=== PATIENT | female | born 1950 | race Caucasian/White ===

== ENCOUNTER 2017-12-26 09:04 | Emergency (ER) | payer OTHER ==
[2017-12-26] MEDS ORDERED: HYDROCODONE/APAP 5/325 MG TAB ONE (10:21)
[2017-12-26] MEDS ORDERED: TETANUS & DIPHTHERIA TOX,ADULT 0.5 ML VIAL ONE (10:21)
[2017-12-26] MEDS ORDERED: BUPIVACAINE 0.5% PF 10 ML VIAL ONE (11:28)
[2017-12-26] MEDS ORDERED: LIDOCAINE 1% MPF 5 ML VIAL ONE (11:28)
--- NOTE | 2017-12-26 11:42 | ER ---
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 No bleeding noted. Bruising and swelling noted to affected digit. Transition of care: patient was not received from another setting of care. Onset of symptoms was December 26, 2017. Risk Assessment: Do you want to hurt yourself or someone else? Patient reports no desire to harm self or others. Initial Sepsis Screen: Does the patient meet any 2 criteria? No. Patient's initial sepsis screen is negative. Does the patient have a suspected source of infection? No. Patient's initial sepsis screen is negative. Care prior to arrival: None. 09:35 Method Of Arrival: Ambulatory ss 09:35 Acuity: FARHAT 4 ss Historical: - Allergies: 09:37 Iodine; ss 09:37 Aspirin; ss 09:37 iron; ss 09:37 Adhesives; ss - Immunization history:: Adult Immunizations up to date. - Social history:: Smoking status: Patient/guardian denies using tobacco. - Ebola Screening: : Patient denies exposure to infectious person Patient denies travel to an Ebola-affected area in the 21 days before illness onset. Screenin:58 Abuse screen: Denies threats or abuse. Denies injuries from another. Nutritional ph screening: No deficits noted. Tuberculosis screening: No symptoms or risk factors identified. Fall Risk None identified. Assessment: 10:15 General: Appears in no apparent distress. comfortable, Behavior is calm, cooperative, ph appropriate for age. Pain: Complains of pain in palmar aspect of distal phalanx of left middle finger. Neuro: Level of Consciousness is awake, alert, obeys commands, Oriented to person, place, time, situation. Cardiovascular: Capillary refill < 3 seconds Patient's skin is warm and dry. Respiratory: Airway is patent Respiratory effort is even, unlabored, Respiratory pattern is regular, symmetrical. GI: No signs and/or symptoms were reported involving the gastrointestinal system. Derm: Skin is intact, is healthy with good turgor, Skin is pink, warm \T\ dry. Bruising that is dark purple, on palmar aspect of distal phalanx of left middle finger. Musculoskeletal: Circulation, motion, and sensation intact. Range of motion: intact in all extremities, Swelling present in palmar aspect of distal phalanx of left middle finger. Vital Signs: 09:37 BP 131 / 80; Pulse 69; Resp 15; Temp 98.0(O); Pulse Ox 100% on R/A; Weight 71.67 kg; ss Height 5 ft. 1 in. (154.94 cm); Pain 8/10; 09:37 Body Mass Index 29.85 (71.67 kg, 154.94 cm) ss ED Course: 09:07 Patient arrived in ED. sb2 09:07 Out, [facility] is Private Physician. sb2 09:36 Triage completed. ss 09:37 Arm band placed on right wrist. ss 09:58 Dereje Das PA is PHCP. cp 09:58 Dereje Hayes MD is Attending Physician. cp 10:04 Shahnaz Nevarez, JORGE is Primary Nurse. ph 10:30 X-ray completed. Portable x-ray completed in exam room. Patient tolerated procedure jb2 well. 10:31 XRAY Hand LEFT 3 View In Process Unspecified. EDMS 10:58 Patient has correct armband on for positive identification. Bed in low position. Call ph light in reach. Side rails up X 1. 11:39 Martell Day MD is Referral Physician. cp 12:10 Orthoglass splint: finger protector splint applied to pt left first two fingers and dh3 louise taped with Coban. 12:39 No provider procedures requiring assistance completed. Patient did not have IV access ss during this emergency room visit. 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 Exp: ph 02/14/2020. Lot #: [id number]. } Route: IM; Site: right deltoid; 11:28 Drug: Lidocaine (1 %) 5 mg Route: Infiltration; ph 11:28 Drug: Marcaine (0.5 %) 5 ml Volume: 10 ml; Route: Infiltration; ph Outcome: 11:41 Discharge ordered by . cp 12:39 Discharged to home ambulatory, with family. ss 12:39 Condition: good 12:39 Discharge instructions given to patient, family, Instructed on discharge instructions, follow up and referral plans. medication usage, Demonstrated understanding of instructions, follow-up care, medications, Prescriptions given X 2. 12:39 Patient left the ED. Signatures: Dispatcher [employer] Roby Laboy2 Samantha Adhikari, JORGE RN Shahnaz Nevarez RN RN ph Dereje Das, HENRY PA Elisa Rogers 3 Aminata Sun sb2
--- NOTE | 2017-12-26 11:42 | EDPHYS ---
Physician Documentation [facility] Name: Rissa Nolen Age: 67 yrs Sex: Female : 1950 Arrival Date: 12/26/2017 Time: 09:07 Bed 15 Private MD: Out, [facility] ED Physician Dereje Hayes HPI: 12/26 10:15 This 67 yrs old Female presents to ER via Ambulatory with complaints of cp Finger Injury. 10:15 The patient or guardian reports a contusion, decreased range of motion, injury, pain, cp swelling, tenderness. 10:15 The complaints affect the palmar aspect of distal phalanx of left middle finger. 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 Onset: The symptoms/episode began/occurred this morning. Associated signs and symptoms: Pertinent positives: cyanosis distally, Pertinent negatives: cyanosis distally. Historical: - Allergies: 09:37 Iodine; ss 09:37 Aspirin; ss 09:37 iron; ss 09:37 Adhesives; ss - Immunization history:: Adult Immunizations up to date. - Social history:: Smoking status: Patient/guardian denies using tobacco. - Ebola Screening: : Patient denies exposure to infectious person Patient denies travel to an Ebola-affected area in the 21 days before illness onset. ROS: 10:20 Constitutional: Negative for body aches, chills, fever, poor PO intake. cp 10:20 Eyes: Negative for injury, pain, redness, and discharge. cp 10:20 ENT: Negative for drainage from ear(s), ear pain, sore throat, difficulty swallowing, difficulty handling secretions. 10:20 Respiratory: Negative for cough, shortness of breath, wheezing. 10:20 Abdomen/GI: Negative for abdominal pain, nausea, vomiting, and diarrhea. 10:20 MS/extremity: Positive for contusion, decreased range of motion, ecchymosis, pain, paresthesias, swelling, tenderness, of the palmar aspect of distal phalanx of left middle finger. 10:20 All other systems are negative. Exam: 10:28 Constitutional: The patient appears in no acute distress, alert, awake, non-toxic, well cp developed, well nourished. 10:28 Head/Face: Normocephalic, atraumatic. cp 10:28 Eyes: Periorbital structures: appear normal, Conjunctiva: normal, no exudate, no injection, Sclera: no appreciated abnormality, Lids and lashes: appear normal, bilaterally. 10:28 ENT: External ear(s): are unremarkable, Nose: is normal, Mouth: is normal, Posterior pharynx: is normal, airway is patent, no erythema, no exudate. 10:28 Neck: ROM/movement: is normal, is supple, without pain, no range of motions limitations, no nuchal rigidity. 10:28 Chest/axilla: Inspection: normal. 10:28 Cardiovascular: Rate: normal, Pulses: Pulses are 2+ in right radial artery and left radial artery. Edema: is not appreciated. 10:28 Respiratory: the patient does not display signs of respiratory distress, Respirations: normal. 10:28 Abdomen/GI: Exam negative for acute changes, Inspection: 10:28 Musculoskeletal/extremity: Extremities: grossly normal except: noted in the palmar aspect of distal phalanx of left middle finger: contusion, decreased ROM, ecchymosis, pain, swelling, tenderness, ROM: limited active range of motion, in the left middle finger, patient unable to flex finger, decreased sensation. 10:28 Skin: cellulitis, is not appreciated, no rash present. Vital Signs: 09:37 BP 131 / 80; Pulse 69; Resp 15; Temp 98.0(O); Pulse Ox 100% on R/A; Weight 71.67 kg; ss Height 5 ft. 1 in. (154.94 cm); Pain 8/10; 09:37 Body Mass Index 29.85 (71.67 kg, 154.94 cm) Procedures: 12:30 Splinting: Splint applied to left middle finger using Orthoglass splint, sugar tong cp type. applied by tech. Examined by me, post splint application: neurovascular intact, Patient tolerated well. MDM: 10:00 Patient medically screened. cp 11:00 Differential diagnosis: dislocation, open fracture, closed fracture, contusion. cp 11:40 Data reviewed: vital signs, nurses notes, radiologic studies, plain films, and as a cp result, I will discharge patient. 11:40 Test interpretation: by ED physician or midlevel provider: plain radiologic studies. cp Counseling: I had a detailed discussion with the patient and/or guardian regarding: the historical points, exam findings, and any diagnostic results supporting the discharge/admit diagnosis, radiology results, the need for outpatient follow up, a hand specialist, to return to the emergency department if symptoms worsen or persist or if there are any questions or concerns that arise at home. Response to treatment: the patient's symptoms have markedly improved after treatment. 12/26 10:08 Order name: XRAY Hand LEFT 3 View; Complete Time: 11:45 cp 12/26 11:45 Interpretation: Report reviewed. 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 Exp: ph 02/14/2020. Lot #: [id number]. } Route: IM; Site: right deltoid; 11:28 Drug: Lidocaine (1 %) 5 mg Route: Infiltration; ph 11:28 Drug: Marcaine (0.5 %) 5 ml Volume: 10 ml; Route: Infiltration; ph Disposition: 12/27 06:45 Co-signature as Attending Physician, Dereje Hayes MD I agree with the assessment and marya plan of care. Disposition: 12/26/17 11:41 Discharged to Home. Impression: Contusion of left middle finger without damage to nail, Rupture Left Middle Finger Flexor Tendon. - Condition is Stable. - Discharge Instructions: Contusion. - Prescriptions for Keflex 500 mg Oral Capsule - take 1 capsule by ORAL route every 8 hours for 7 days; 21 capsule. Tylenol- Codeine #3 300-30 mg Oral Tablet - take 2 tablets by ORAL route every 6 hours As needed; 15 tablet. - Medication Reconciliation Form, Thank You Letter, Antibiotic Education, Prescription Opioid Use form. - Follow up: Martell Day MD; When: 2 - 3 days; Reason: Recheck today's complaints. - Problem is new. - Symptoms have improved. Signatures: Dispatcher [employer] Dereje Barboza MD MD cha Smirch, Shelby, RN RN ss Shahnaz Nevarez RN RN ph Dereje Das PA PA cp Corrections: (The following items were deleted from the chart) 12/26 12:39 11:41 12/26/2017 11:41 Discharged to Home. Impression: Contusion of left middle finger ss without damage to nail; Rupture Left Middle Finger Flexor Tendon. Condition is Stable. Forms are Medication Reconciliation Form, Thank You Letter, Antibiotic Education, Prescription Opioid Use. Follow up: Martell Day; When: 2 - 3 days; Reason: Recheck today's complaints. Problem is new. Symptoms have improved. cp 12/27 08:12/25 10:20 Constitutional: Negative for body aches, chills, fever, poor PO intake, cp cp 12/27 08:12/25 10:20 Eyes: Negative for injury, pain, redness, and discharge, cp cp
--- NOTE | 2017-12-26 11:42 | RAD REPORT ---
EXAM DESCRIPTION: RAD - Hand Left 3 View - 12/26/2017 10:31 am CLINICAL HISTORY: PAIN Trauma to third digit COMPARISON: No comparisons FINDINGS: Soft tissue swelling is present involving the third digit. No fracture or dislocation is e vident.
[2017-12-26 12:43] VITALS: BP 131/80; TEMP 98; O2SAT 100
== END 2017-12-26 12:39 | disposition home or self-care (01) ==
LOC: ER 09:04
PROC: 2W3KX1Z Immobilization of Left Finger using Splint (ICD-10-PCS; principal; 2017-12-26)
DX: S56.114A Strain of flexor muscle, fascia and tendon of left middle finger at forearm level, initial encounter (principal); W22.8XXA Striking against or struck by other objects, initial encounter; Y93.9 Activity, unspecified; Y92.009 Unspecified place in unspecified non-institutional (private) residence as the place of occurrence of the external cause; Z88.6 Allergy status to analgesic agent; Z91.048 Other nonmedicinal substance allergy status; Z23 Encounter for immunization
CPT/HCPCS: 90714; 99284

== ENCOUNTER 2018-05-28 14:46 | Emergency (ER) | payer OTHER ==
--- OUTSIDE RECORDS SUMMARY | 2018-05-28 14:49 | XMS REPORT ---
:1950 [facility] [address] [place] [id number] Care Team Providers Name Role Phone Unavailable Unavailable Unavailable Payers Payer Name Policy Type Policy Number Effective Date Expiration Date Problems This patient has no known problems. Allergies, Adverse Reactions, Alerts Allergy Name Allergy Status Severity Reaction(s) Onset Inactive Treating Comments Type Date Date Clinician Iodine and DA Active [place] 2018-04 Iodide -14 Containing 00:00:0 Produc 0 adhesive DA Active [place] 2018-04 tape 00:00:0 0 iron DA Active SV 2015-11 00:00:0 0 iodine DA Active SV 2015-11 00:00:0 0 aspirin DA Active SV 2015-11 00:00:0 0 BLOOD DA Active SV 2015-11 00:00:0 0 TAPE DA Active U 2008-05 00:00:0 0 Medications This patient has no known medications.
--- NOTE | 2018-05-28 16:29 | RAD REPORT ---
EXAM DESCRIPTION: CT - Abdomen Pelvis Wo Contrast - 05/28/2018 4:06 pm CLINICAL HISTORY: Abdominal pain, drainage from surgical site, surgery May 13 for rectal prolap se COMPARISON: None. TECHNIQUE: Axial [address] imaging of the abdomen and pelvis was performed without IV contrast. No IV contrast was given because of allergy, abnormal renal function, patient refusal or physician re quest. No oral contrast given. All CT scans are performed using dose optimization technique as appropriate and may include automated exposure control or mA/KV adjustment according to patient size. FINDINGS: Minimal patchy opacification in the left lung base could be atelectasis or minimal infiltr ate. Lung powers are not adequately visualized for full assessment. No pneumothorax or pleural effusi on. No pericardial thickening or effusion. The liver, spleen and pancreas show no suspicious findings on non-contrast imaging. Cholecystectomy c lips are present. No biliary tree dilatation. No hydronephrosis or suspicious renal mass. A 3 cm cyst present upper pole left kidney. Partially guillermo led urinary bladder shows no suspicious finding. No significant adrenal finding. Isodense renal yony s and pyelonephritis cannot be excluded in the absence of IV contrast. Fluid distends the stomach. Gastric surgical changes are noted. Large and small bowel are not dilated . Postsurgical changes are noted to the anterior abdominal wall. Skin ze are still in place. Str anding is present in the subcutaneous fatty tissues. At the umbilical level there is a small amount o f air present in the deep subcutaneous fatty tissues. Small bowel just deep to the anterior abdominal wall at the umbilicus shows wall thickening and edema. Anastomotic ze are seen at the distal re ctum and the rectosigmoid junction. In the presacral soft tissues there is a 6 x 6 x 5 centimeter low -density collection. Air is seen in the superior margin. This most likely is an abscess and likely ar ises from the leak along the posterior margin of the distal rectum anastomosis. No free air or pneumatosis. No hernia, mass or bulky lymphadenopathy. No suspicious bony findings. IMPRESSION: Approximately 6 centimeter diameter abscess in the presacral soft tissues. This may be f rom the distal rectum anastomotic leak. Air, fluid and stranding are present without a defined collection in the deep subcutaneous fatty tiss ues at the umbilical level. There is secondary involvement of small bowel deep to the anterior abdomi nal wall at the umbilical level. No free air. Full assessment is limited is the absence of IV contrast.
--- NOTE | 2018-05-28 17:13 | EDPHYS ---
Physician Documentation [facility] Name: Rissa Nolen Age: 67 yrs Sex: Female : 1950 Arrival Date: 05/28/2018 Time: 14:48 Bed 23 Private MD: Out, [facility] ED Physician Alexx Ramsay HPI: 05/28 15:53 This 67 yrs old Female presents to ER via Wheelchair with complaints of Post jmm Surgical Pain. 15:53 The patient presents with abdominal pain in the lower abdomen. Onset: The jmm symptoms/episode began/occurred gradually. The symptoms radiate to. Associated signs and symptoms: Pertinent negatives: fever. This is a 67 year old female that presents to the ED with lower abdominal pain at her incision site. Patient states having a surgival procedure performed by Dr. Healy at [facility] in mid April to prepare a rectal prolapse. Patient had multiple falls and was readmitted and discharged on . Patient is concerned about wound care and drainage from the wound site. Patient has not taken prescribed antibiotics. . Historical: - Allergies: 15:36 Adhesives; ph 15:36 Aspirin; ph 15:36 Iodine; ph 15:36 iron; ph - PSHx: 15:36 Mastectomy, Left; Mastectomy, Right; colon resection; ph - Immunization history:: Adult Immunizations up to date. - Ebola Screening: : No symptoms or risks identified at this time. - Social history:: Smoking status: Patient/guardian denies using tobacco. ROS: 15:53 Constitutional: Negative for fever, chills, and weight loss, Cardiovascular: Negative jmm for chest pain, palpitations, and edema, Respiratory: Negative for shortness of breath, cough, wheezing, and pleuritic chest pain. 15:53 Abdomen/GI: Positive for abdominal pain. 15:53 Skin: Positive for erythema, drainage. 15:53 All other systems are negative. Exam: 15:53 Constitutional: This is a well developed, well nourished patient who is awake, alert, jmm and in no acute distress. Head/Face: atraumatic. Eyes: EOMI, no conjunctival erythema appreciated ENT: Moist Mucus Membranes Neck: Trachea midline, Supple Chest/axilla: Normal chest wall appearance and motion. Cardiovascular: Regular rate and rhythm. No edema appreciated Respiratory: Normal respirations, no respiratory distress appreciated 15:53 Abdomen/GI: vertical incision noted to the lower abdomen with mild surrounding erythema, purulent drainage is noted. Lower abdomen is TTP at the right and left lower quadrant. . 15:53 Skin: erythema with purulent drainage noted to the incision site on the abdomen. 15:53 Neuro: Orientation: is normal, Mentation: is normal, Memory: is normal. 15:53 Psych: Behavior/mood is pleasant, cooperative. Vital Signs: 15:34 BP 155 / 78; Pulse 72; Resp 18; Temp 97.6; Pulse Ox 97% on R/A; ph 16:55 BP 160 / 94; Pulse 68; Resp 18; Pulse Ox 97% on R/A; aj1 18:59 BP 151 / 84; Pulse 77; Resp 18; Pulse Ox 100% on R/A; aj1 MDM: 15:23 Patient medically screened. [facility] 17:09 Data reviewed: vital signs, nurses notes. Counseling: I had a detailed discussion with robby the patient and/or guardian regarding: the historical points, exam findings, and any diagnostic results supporting the discharge/admit diagnosis, radiology results, the need to transfer to another facility. ED course: i discussed the patient with [facility] physician whom accepted transfer. . 05/28 15:48 Order name: Basic Metabolic Panel; Complete Time: 17:23 [facility] 05/28 15:48 Order name: CBC with Diff; Complete Time: 18:19 [facility] 05/28 15:48 Order name: Creatinine for Radiology; Complete Time: 17:23 [facility] 05/28 15:48 Order name: Hepatic Function; Complete Time: 17:23 [facility] 05/28 15:48 Order name: Lipase; Complete Time: 17:23 [facility] 05/28 15:48 Order name: Procalcitonin; Complete Time: 17:53 [facility] 05/28 15:48 Order name: IV Saline Lock; Complete Time: 16:53 [facility] 05/28 15:48 Order name: Labs collected and sent; Complete Time: 16:53 [facility] 05/28 15:48 Order name: Lactate; Complete Time: 17:23 [facility] 05/28 15:48 Order name: Wound Culture [facility] 05/28 15:48 Order name: Blood Culture Adult (2) [facility] 05/28 15:48 Order name: CT Abd/Pelvis - Without Cont; Complete Time: 16:31 [facility] 05/28 17:05 Order name: Labs - recollect needed; Complete Time: 18:13 eb Administered Medications: 18:36 Drug: Zosyn 3.375 grams Route: IVPB; Infused Over: 60 mins; Site: right antecubital; aj1 Disposition: 05/29 08:05 Co-signature as Attending Physician, Alexx Ramsay MD I agree with the assessment and kdr plan of care. Disposition: 05/28/18 17:10 Transfer ordered to Other Acute Care Facility. Diagnosis is Intrabdominal Abscess. - Reason for transfer: Higher level of care. - Accepting physician is Abdifatah Brock. - Condition is Stable. - Problem is new. - Symptoms are unchanged. Signatures: Dispatcher [employer] EDGreta Nayak, RN RN aj1 Dereje Hayes MD MD cha Rittger, Kevin, MD MD kdr Mickail, Joel, PA PA Shahnaz Arboleda RN RN Pilar Mcdonald Corrections: (The following items were deleted from the chart) 05/28 19:38 17:10 05/28/2018 17:10 Transfer ordered to Other Acute Care Facility. Diagnosis is aj1 Intrabdominal Abscess. Reason for transfer: Higher level of care. Accepting physician is Abdifatah Brock. Condition is Stable. Problem is new. Symptoms are unchanged. [facility]
--- NOTE | 2018-05-28 17:13 | ER ---
Nurse's Notes [facility] Name: Rissa Nolen Age: 67 yrs Sex: Female : 1950 Arrival Date: 05/28/2018 Time: 14:48 Bed 23 Private MD: Out, [facility] Diagnosis: Intrabdominal Abscess Presentation: 05/28 15:30 Presenting complaint: states: Colon sx on May 13 for rectal prolapse, ph preformed in [place], d/c home last Sat, c/o pain and purulent drainage after returning home Fell last week and returned to [place] for tx, CT negative for injury r/t fall but showed a fluid pocket in abdomen near surgical area. Transition of care: patient was not received from another setting of care. Onset of symptoms was May 28, 2018. Risk Assessment: Do you want to hurt yourself or someone else? Patient reports no desire to harm self or others. Initial Sepsis Screen: Does the patient meet any 2 criteria? No. Patient's initial sepsis screen is negative. Care prior to arrival: None. 15:30 Method Of Arrival: Wheelchair ph 15:30 Acuity: FARHAT 3 ph 19:00 Initial Sepsis Screen: Does the patient have a suspected source of infection? Yes: Skin aj1 breakdown/wound. Historical: - Allergies: 15:36 Adhesives; ph 15:36 Aspirin; ph 15:36 Iodine; ph 15:36 iron; ph - PSHx: 15:36 Mastectomy, Left; Mastectomy, Right; colon resection; ph - Immunization history:: Adult Immunizations up to date. - Ebola Screening: : No symptoms or risks identified at this time. - Social history:: Smoking status: Patient/guardian denies using tobacco. Screenin:00 Abuse screen: Denies threats or abuse. Denies injuries from another. Nutritional aj1 screening: No deficits noted. Tuberculosis screening: No symptoms or risk factors identified. 19:00 Fall Risk Fall in past 12 months (25 points). No secondary diagnosis (0 pts). IV access aj1 (20 points). Ambulatory Aid- None/Bed Rest/Nurse Assist (0 pts). Gait- Normal/Bed Rest/Wheelchair (0 pts) Mental Status- Oriented to own ability (0 pts). Total Hawkins Fall Scale indicates High Risk Score (45 or more points). As available patient and family educated on Fall Prevention Program and Strategies. Assessment: 16:00 General: Appears in no apparent distress. uncomfortable, Behavior is calm, cooperative, aj1 appropriate for age. Pain: Complains of pain in abdomen. Neuro: Level of Consciousness is awake, alert, obeys commands. Cardiovascular: Patient's skin is warm and dry. Respiratory: Airway is patent Respiratory effort is even, unlabored, Respiratory pattern is regular, symmetrical. GI: Abdomen is non-distended, incision noted to lower abdomen, with purulent drainage. Redness noted around incision site Abd is soft X 4 quads Abdomen is tender to palpation in right lower quadrant and left lower quadrant. : No signs and/or symptoms were reported regarding the genitourinary system. EENT: No signs and/or symptoms were reported regarding the EENT system. Derm: No signs and/or symptoms reported regarding the dermatologic system. Skin is pink, warm \T\ dry. normal. Musculoskeletal: No signs and/or symptoms reported regarding the musculoskeletal system. Circulation, motion, and sensation intact. 16:55 Reassessment: Patient appears in no apparent distress at this time. No changes from aj1 previously documented assessment. Patient and/or family updated on plan of care and expected duration. Pain level reassessed. Patient is alert, oriented x 3, equal unlabored respirations, skin warm/dry/pink. 17:55 Reassessment: No changes from previously documented assessment. General: Appears in no aj1 apparent distress. comfortable, Behavior is calm, cooperative, appropriate for age. Neuro: Level of Consciousness is awake, alert, obeys commands. Cardiovascular: Patient's skin is warm and dry. Respiratory: Airway is patent Respiratory effort is even, unlabored, Respiratory pattern is regular, symmetrical. GI: Abdomen is non-distended. Derm: Skin is pink, warm \T\ dry. normal. Musculoskeletal: Circulation, motion, and sensation intact. 18:55 Reassessment: Reports given to JORGE Mcclain on [facility]. aj1 18:57 Reassessment: Patient's was notified that report was given and EMS was on the aj1 way to transfer patient, per patient's request. 18:59 Reassessment: Patient appears in no apparent distress at this time. No changes from aj1 previously documented assessment. Patient and/or family updated on plan of care and expected duration. Pain level reassessed. Patient is alert, oriented x 3, equal unlabored respirations, skin warm/dry/pink. Vital Signs: 15:34 BP 155 / 78; Pulse 72; Resp 18; Temp 97.6; Pulse Ox 97% on R/A; ph 16:55 BP 160 / 94; Pulse 68; Resp 18; Pulse Ox 97% on R/A; aj1 18:59 BP 151 / 84; Pulse 77; Resp 18; Pulse Ox 100% on R/A; aj1 ED Course: 14:48 Patient arrived in ED. sb2 14:48 Out, of Town is Private Physician. sb2 15:23 Van Mcfarland PA is PHCP. [facility] 15:23 Alexx Ramsay MD is Attending Physician. shawna 15:33 Greta Griffin RN is Primary Nurse. aj1 15:34 Triage completed. ph 15:36 Arm band placed on Patient placed in an exam room, on a stretcher. ph 15:[address] vr 16:00 Patient has correct armband on for positive identification. aj1 16:00 No provider procedures requiring assistance completed. aj1 16:04 CT completed. Patient tolerated procedure well. Patient moved back from CT. 2 16:06 CT Abd/Pelvis - Without Cont In Process Unspecified. EDMS 16:53 Initial lab(s) drawn, by me, sent to lab. Inserted saline lock: 22 gauge in right aj1 antecubital area, using aseptic technique. Blood collected. 18:24 Inserted saline lock: 18 gauge in right upper arm, using aseptic technique. bp 19:00 Patient transferred, IV remains in place. aj1 Administered Medications: 18:36 Drug: Zosyn 3.375 grams Route: IVPB; Infused Over: 60 mins; Site: right antecubital; aj1 Outcome: 17:10 ER care complete, transfer ordered by . [facility] 19:38 Transferred by ground EMS Note: To [facility] aj1 19:38 Condition: stable aj1 19:38 Discharge instructions given to patient, Instructed on the need for transfer, Demonstrated understanding of instructions. 19:38 Patient left the ED. aj1 Signatures: Dispatcher [employer] EDGreta Nayak, RN RN aj Van Mcfarland PA PA jmm Davis, Victoria vr Hall, Patricia, RN RN ph Reina Bravo 2 Vega Genao RN RN Dino, Aminata 2
[2018-05-28 17:16] LABS: Albumin 2.2 g/dL (3.4-5.0); Bilirubin Direct 0.2 mg/dL (0-0.2); Bilirubin Total 0.4 mg/dL (0.2-1.0); Protein, Total 6.4 g/dL (6.4-8.2)
[2018-05-28] MEDS ORDERED: PIPER/TAZO/NS 3.375gm 3.375 GM/100 ML BAG ONE (17:42)
[2018-05-28 18:10] LABS: Absolute Lymphocytes (CBC) 1.6 K/uL (0.7-4.9); Absolute Monocytes 0.6 K/uL (0.1-1.3); Absolute Neutrophil 6.1 K/uL (1.8-8.0); Basophils % 0.7 % (0-1.3); Eosinophils % 3.8 % (0-4.4); Lymphocytes % 18.8 % (15.3-44.8); MPV 8.5 fL (7.6-11.3); Monocytes % 6.5 % (3.3-12.3); RBC Red Blood Cell Count 3.66 M/uL (3.86-4.86)
[2018-05-28 19:45] VITALS: TEMP 97.6
[2018-05-28 19:47] VITALS: BP 151/84; O2SAT 100
== END 2018-05-28 19:38 ==
LOC: ER 14:46
DX: K65.1 Peritoneal abscess (principal); T81.43XA Infection following a procedure, organ and space surgical site, initial encounter; Z88.6 Allergy status to analgesic agent; Z88.8 Allergy status to other drugs, medicaments and biological substances; Z90.12 Acquired absence of left breast and nipple; Z91.048 Other nonmedicinal substance allergy status
CPT/HCPCS: 36415; 74176; 80048; 80076; 83605; 83690; 84145; 85025; 87040 ×2; 87070; 87205; J2543; 96374; 99285

== ENCOUNTER 2018-08-03 08:14 | Emergency (ER) | payer OTHER ==
--- OUTSIDE RECORDS SUMMARY | 2018-08-03 08:16 | XMS REPORT ---
:1950 [facility] Address [address] [place] [address] [address] [place] [address] Care Team Providers Name Role Phone Unavailable Unavailable Unavailable Payers Payer Name Policy Type Policy Number Effective Date Expiration Date Problems This patient has no known problems. Allergies, Adverse Reactions, Alerts Allergy Name Allergy Status Severity Reaction(s) Onset Inactive Treating Comments Type Date Date Clinician Iodine and DA Active ND 2018-04 Iodide -14 Containing 00:00:0 Produc 0 adhesive DA Active ND 2018-04 tape 00:00:0 0 iron DA Active SV 2015-11 00:00:0 0 iodine DA Active SV 2015-11 00:00:0 0 aspirin DA Active SV 2015-11 00:00:0 0 BLOOD DA Active SV 2015-11 00:00:0 0 TAPE DA Active U 2008-05 00:00:0 0 Medications This patient has no known medications.
[2018-08-03] MEDS ORDERED: NA CHLORIDE 0.9% 1,000 ML ONE (08:46)
[2018-08-03] MEDS ORDERED: ONDANSETRON 4 MG/2 ML VIAL ONE ×2 (08:46→11:03)
[2018-08-03] MEDS ORDERED: HYDROMORPHONE HCL 1 MG/ML INJ ONE ×2 (08:46→11:03)
[2018-08-03 09:11] LABS: Absolute Lymphocytes (CBC) 2.4 K/uL (0.7-4.9); Absolute Monocytes 0.4 K/uL (0.1-1.3); Basophils % 0.4 % (0-1.3); Eosinophils % 2.3 % (0-4.4); Hematocrit 35.6 % (36.0-45.0); Lymphocytes % 40.5 % (15.3-44.8); MPV 9.6 fL (7.6-11.3); Monocytes % 6.1 % (3.3-12.3); RBC Red Blood Cell Count 3.72 M/uL (3.86-4.86)
[2018-08-03 09:13] LABS: Protime INR 0.86
[2018-08-03 09:29] LABS: ALT/SGPT 16 U/L (12-78); AST/SGOT 17 U/L (15-37); Albumin 2.4 g/dL (3.4-5.0); Alkaline Phosphatase 93 U/L (45-117); BUN Blood Urea Nitrogen 25 mg/dL (7-18); Bicarbonate 25 mmol/L (21-32); Bilirubin Direct 0.2 mg/dL (0-0.2); Bilirubin Total 0.4 mg/dL (0.2-1.0); Glucose Level 82 mg/dL (74-106); Lipase 44 U/L (73-393); Magnesium 1.9 mg/dL (1.8-2.4); NT PRO-BNP 913 pg/mL (<125); Potassium 4.1 mmol/L (3.5-5.1); Protein, Total 5.9 g/dL (6.4-8.2); Sodium Level 142 mmol/L (136-145); Troponin (Emerg Dept Use Only) < 0.02 ng/mL (0.0-0.045)
--- NOTE | 2018-08-03 09:50 | RAD REPORT ---
EXAM DESCRIPTION: RAD - Chest Single View - 08/03/2018 9:10 am CLINICAL HISTORY: Abdominal pain, abdominal distention, shortness of breath COMPARISON: January 2010 TECHNIQUE: AP portable chest image was obtained 0906 hours . FINDINGS: No focal mass or consolidation. Interstitial markings are prominent, mildly progressive fr om comparison. Small granulomas are present. Failure or volume overload are not suspected. Heart and vasculature are normal. No measurable pleural effusion and no pneumothorax. No acute bony abnormality seen. No acute aortic findings suspected. IMPRESSION: Chronic interstitial changes are present. No acute finding confirmed.
[2018-08-03 11:32] LABS: Urine Blood NEGATIVE (NEG); Urine Glucose NEGATIVE (NEG); Urine Protein NEGATIVE (NEG); Urine Specific Gravity 1.015 (1.005-1.030)
--- NOTE | 2018-08-03 12:11 | RAD REPORT ---
EXAM DESCRIPTION: CT - Abdomen Pelvis Wo Contrast - 08/03/2018 11:50 am CLINICAL HISTORY: Abdominal pain COMPARISON: May 2018 TECHNIQUE: Axial [address] imaging of the abdomen and pelvis was performed without IV contrast. No IV contrast was given because of allergy, abnormal renal function, patient refusal or physician re quest. Oral contrast was administered. All CT scans are performed using dose optimization technique as appropriate and may include automated exposure control or mA/KV adjustment according to patient size. FINDINGS: No suspicious findings in the lung bases. Liver and spleen show no suspicious findings for noncontrast imaging. There is substantial pancreatic parenchymal volume loss. No acute pancreatic or peripancreatic finding. Cholecystectomy clips are pr esent. No abnormal biliary tree dilatation. No hydronephrosis or suspicious renal mass. Cyst in the upper pole left kidney has not changed over t he short interval. No significant adrenal finding. Isodense renal masses and pyelonephritis cannot be excluded in the absence of IV contrast. The urinary bladder is without significant finding. Uterus i s absent. Ovaries are absent or atrophic. Gastric postsurgical changes are noted and stable. No acute gastric finding. No dilated small bowel. Oral CT contrast has reached the mid transverse colon. No acute colon process identified. No free air, free fluid or pneumatosis. Focal inflammatory stranding seen. Postsurgical changes are noted to the anterior abdominal wall with anterior wound. No abscess or drainable fluid collections s een. No extension of the midline abdominal wall surgical changes into the peritoneal cavity. Thickeni ng in the soft tissues anterior to the sacrum has diminished substantially from May. Disc and bony degenerative changes are present. Pain pump is in place. IMPRESSION: No obstruction, free air or surgically emergent finding. No acute GI or finding identifiable. Thickened soft tissues anterior to the sacrum have diminished substantially from May. Full assessment is limited is the absence of IV contrast.
--- NOTE | 2018-08-03 12:25 | EDPHYS ---
Physician Documentation [facility] Name: Rissa Nolen Age: 67 yrs Sex: Female : 1950 Arrival Date: 08/03/2018 Time: 08:16 Bed 19 Private MD: GREG Physician Dereje Hayes HPI: 08/03 08:29 This 67 yrs old Female presents to ER via EMS with complaints of Low Back marya Pain. 08:29 The patient presents with pain that is acute. The symptoms are located in the left low marya back and right low back. 08:29 The pain does not radiate. The problem was sustained from unknown cause. Onset: The marya symptoms/episode began/occurred just prior to arrival. Modifying factors: The patient symptoms are alleviated by nothing, remaining still, the patient symptoms are aggravated by any movement. The patient presents with abdominal pain in the lower abdomen, right lower quadrant. Onset: The symptoms/episode began/occurred this morning. Severity of symptoms: At their worst the symptoms were moderate, severe, in the emergency department the symptoms are unchanged. Historical: - Allergies: 08:31 Adhesives; em 08:31 Aspirin; em 08:31 Iodine; em 08:31 iron; em - Home Meds: 08:31 ibuprofen 200 mg Oral cap as needed [Active]; trazodone 100 mg Oral tab [Active]; em Cymbalta 60 mg oral cpDR 1 cap once daily [Active]; levothyroxine 25 mcg tab 1 tab once daily [Active]; docusate sodium 50 mg/5 mL Oral liqd 5 mL once daily [Active]; rasagiline oral oral [Active]; Aricept 10 mg Oral tab 1 tab once daily [Active]; Protonix 40 mg oral TbEC 1 tab [Active]; - PMHx: 09:17 scoliosis; Dementia; neuropathy; Hernia; Parkinsons; Hypothyroidism; Fibromyalgia; em - PSHx: 08:31 Mastectomy, Left; Mastectomy, Right; colon resection; em - Immunization history:: Adult Immunizations up to date. - Social history:: Smoking status: Patient/guardian denies using tobacco. - Family history:: not pertinent. - Ebola Screening: : Patient negative for fever greater than or equal to 101.5 degrees Fahrenheit, and additional compatible Ebola Virus Disease symptoms Patient denies exposure to infectious person Patient denies travel to an Ebola-affected area in the 21 days before illness onset No symptoms or risks identified at this time. ROS: 08:29 Constitutional: Negative for fever, chills, and weight loss, Eyes: Negative for injury, marya pain, redness, and discharge, ENT: Negative for injury, pain, and discharge, Neck: Negative for injury, pain, and swelling, Cardiovascular: Negative for chest pain, palpitations, and edema, Respiratory: Negative for shortness of breath, cough, wheezing, and pleuritic chest pain, Back: Negative for injury and pain, : Negative for injury, bleeding, discharge, and swelling, MS/Extremity: Negative for injury and deformity, Skin: Negative for injury, rash, and discoloration, Neuro: Negative for headache, weakness, numbness, tingling, and seizure, Psych: Negative for depression, anxiety, suicide ideation, homicidal ideation, and hallucinations, Allergy/Immunology: Negative for hives, rash, and allergies, Endocrine: Negative for neck swelling, polydipsia, polyuria, polyphagia, and marked weight changes, Hematologic/Lymphatic: Negative for swollen nodes, abnormal bleeding, and unusual bruising. 08:29 Abdomen/GI: Positive for abdominal pain, of the right lower quadrant. Exam: 08:29 Constitutional: This is a well developed, well nourished patient who is awake, alert, marya and in no acute distress. Head/Face: Normocephalic, atraumatic. Eyes: Pupils equal round and reactive to light, extra-ocular motions intact. Lids and lashes normal. Conjunctiva and sclera are non-icteric and not injected. Cornea within normal limits. Periorbital areas with no swelling, redness, or edema. ENT: Nares patent. No nasal discharge, no septal abnormalities noted. Tympanic membranes are normal and external auditory canals are clear. Oropharynx with no redness, swelling, or masses, exudates, or evidence of obstruction, uvula midline. Mucous membranes moist. Neck: Trachea midline, no thyromegaly or masses palpated, and no cervical lymphadenopathy. Supple, full range of motion without nuchal rigidity, or vertebral point tenderness. No Meningismus. Chest/axilla: Normal chest wall appearance and motion. Nontender with no deformity. No lesions are appreciated. Cardiovascular: Regular rate and rhythm with a normal S1 and S2. No gallops, murmurs, or rubs. Normal PMI, no JVD. No pulse deficits. Respiratory: Lungs have equal breath sounds bilaterally, clear to auscultation and percussion. No rales, rhonchi or wheezes noted. No increased work of breathing, no retractions or nasal flaring. Back: No spinal tenderness. No costovertebral tenderness. Full range of motion. Female : Normal external genitalia. Skin: Warm, dry with normal turgor. Normal color with no rashes, no lesions, and no evidence of cellulitis. MS/ Extremity: Pulses equal, no cyanosis. Neurovascular intact. Full, normal range of motion. Neuro: Awake and alert, GCS 15, oriented to person, place, time, and situation. Cranial nerves II-XII grossly intact. Motor strength 5/5 in all extremities. Sensory grossly intact. Cerebellar exam normal. Normal gait. Psych: Awake, alert, with orientation to person, place and time. Behavior, mood, and affect are within normal limits. 08:29 Abdomen/GI: Inspection: abdomen appears normal, Bowel sounds: normal, Palpation: moderate abdominal tenderness, in the right lower quadrant, Liver: no appreciated palpable abnormalities, Hernia: not appreciated. Vital Signs: 08:31 BP 153 / 97; Pulse 89; Resp 22; Temp 98.2; Pulse Ox 100% on R/A; Weight 65.77 kg; em Height 5 ft. 2 in. (157.48 cm); Pain 10/10; 09:00 BP 143 / 77; Pulse 70; Resp 18; Pulse Ox 100% on R/A; Pain 10/10; em 10:00 BP 161 / 78; Pulse 65; Resp 20; Pulse Ox 100% on R/A; em 10:45 BP 148 / 82; Pulse 63; Resp 18; Pulse Ox 100% on R/A; Pain 8/10; em 11:30 BP 148 / 82; Pulse 63; Resp 18; Pulse Ox 99% on R/A; Pain 6/10; em 12:33 BP 158 / 73; Pulse 67; Resp 18; Pulse Ox 100% on R/A; em 14:05 BP 162 / 67; Pulse 69; Resp 18; Pulse Ox 99% on R/A; Pain 6/10; em 08:31 Body Mass Index 26.52 (65.77 kg, 157.48 cm) Procedures: 08:59 Peripheral line: by aseptic technique a peripheral line was placed in the right [facility] external jugular vein. MDM: 08:17 Patient medically screened. [facility] 08:31 Data reviewed: vital signs, nurses notes, lab test result(s), EKG, radiologic studies, [facility] CT scan, plain films. 08/03 08:29 Order name: Basic Metabolic Panel; Complete Time: 10:12 [facility] 08/03 08:29 Order name: CBC with Diff; Complete Time: 10:12 [facility] 08/03 08:29 Order name: LFT's; Complete Time: 10:12 [facility] 08/03 08:29 Order name: Magnesium; Complete Time: 10:12 [facility] 08/03 08:29 Order name: NT PRO-BNP; Complete Time: 10:12 [facility] 08/03 08:29 Order name: PT-INR; Complete Time: 10:12 [facility] 08/03 08:29 Order name: Troponin (emerg Dept Use Only); Complete Time: 10:12 [facility] 08/03 08:29 Order name: XRAY Chest (1 view); Complete Time: 10:12 [facility] 08/03 08:29 Order name: Lipase; Complete Time: 10:12 [facility] 08/03 08:29 Order name: Urine Culture [facility] 08/03 08:29 Order name: CT Abd/Pelvis - Without Cont; Complete Time: 12:22 [facility] 08/03 10:51 Order name: Urine Dipstick--Ancillary (enter results); Complete Time: 12:01 08/03 13:35 Order name: Lactate; Complete Time: 15:06 08/03 08:29 Order name: EKG; Complete Time: 08:30 [facility] 08/03 08:29 Order name: Cardiac monitoring; Complete Time: 09:08 [facility] 08/03 08:29 Order name: EKG - Nurse/Tech; Complete Time: 09:08 [facility] 08/03 08:29 Order name: IV Saline Lock; Complete Time: 09:08 [facility] 08/03 08:29 Order name: Labs collected and sent; Complete Time: 09:08 [facility] 08/03 08:29 Order name: O2 Per Protocol; Complete Time: 09:09 [facility] 08/03 08:29 Order name: O2 Sat Monitoring; Complete Time: 09:09 [facility] 08/03 08:29 Order name: Urine Dipstick-Ancillary (obtain specimen); Complete Time: 10:27 [facility] Administered Medications: 09:00 Drug: NS 0.9% 500 ml Route: IV; Rate: bolus; Site: right jugular; ss 09:35 Follow up: IV Status: Completed infusion; IV Intake: 500ml em 09:05 Drug: Zofran 4 mg Route: IVP; Site: right jugular; ss 09:27 Follow up: Response: No adverse reaction em 09:07 Drug: NS 0.9% 1000 ml Route: IV; Rate: 125 ml/hr; Site: right antecubital; ss 15:56 Follow up: IV Status: Order to discontinue infusion; IV Intake: 900ml em 09:07 Drug: Dilaudid 1 mg Route: IVP; Site: right jugular; ss 09:27 Follow up: Response: No adverse reaction; Pain is decreased em 10:49 Drug: Zofran 4 mg Route: IVP; Site: right jugular; ss 11:21 Follow up: Response: No adverse reaction em 10:51 Drug: Dilaudid 1 mg Route: IVP; Site: right jugular; ss 11:20 Follow up: Response: No adverse reaction; Pain is decreased em Disposition: 08/03/18 14:56 Discharged to Home. Impression: Abdominal tenderness, Other chronic pain. - Condition is Stable. - Prescriptions for Tylenol- Codeine #3 300-30 mg Oral Tablet - take 2 tablets by ORAL route every 6 hours As needed; 20 tablet. - Medication Reconciliation Form, Thank You Letter, Antibiotic Education, Prescription Opioid Use form. - Follow up: Private Physician; When: 2 - 3 days; Reason: Recheck today's complaints, Continuance of care, Re-evaluation by your physician. - Problem is new. - Symptoms have improved. Signatures: Dispatcher [employer] [facility] Dereje Hayes MD MD cha Munoz, Edgar, HYDRO PLANT OPERATOR HYDRO PLANT OPERATOR em Samantha Adhikari, RN RN ss Corrections: (The following items were deleted from the chart) 13:38 12:24 08/03/2018 12:24 Discharged to Home. Impression: Abdominal tenderness; Other marya chronic pain. Condition is Stable. Discharge Instructions: Abdominal Pain, Adult, Chronic Pain, Abdominal Pain, Adult, [id number]. Prescriptions for Tylenol-Codeine #3 300-30 mg Oral Tablet - take 2 tablets by ORAL route every 6 hours As needed; 20 tablet, Zofran 4 mg Oral Tablet - take 1 tablet by ORAL route every 12 hours As needed; 14 tablet. and Forms are Medication Reconciliation Form, Thank You Letter, Antibiotic Education, Prescription Opioid Use. Follow up: Private Physician; When: 2 - 3 days; Reason: Recheck today's complaints, Continuance of care, Re-evaluation by your physician. Problem is new. Symptoms have improved. [facility] 14:56 13:42 Hospitalization Ordered by Yvonne Barnes MD for Observation. Preliminary [facility] diagnosis is Abdominal tenderness - intractable. Bed requested for Telemetry/MedSurg (observation). Status is Observation. Condition is Fair. Problem is new. Symptoms have improved. UTI on Admission? No. marya 15:57 14:56 08/03/2018 14:56 Discharged to Home. Impression: Abdominal tenderness; Other em chronic pain. Condition is Stable. Prescriptions for Tylenol-Codeine #3 300-30 mg Oral Tablet - take 2 tablets by ORAL route every 6 hours As needed; 20 tablet, Zofran 4 mg Oral Tablet - take 1 tablet by ORAL route every 12 hours As needed; 14 tablet. and Forms are Medication Reconciliation Form, Thank You Letter, Antibiotic Education, Prescription Opioid Use. Follow up: Private Physician; When: 2 - 3 days; Reason: Recheck today's complaints, Continuance of care, Re-evaluation by your physician. Problem is new. Symptoms have improved. marya
--- NOTE | 2018-08-03 12:25 | ER ---
Nurse's Notes [facility] Name: Rissa Nolen Age: 67 yrs Sex: Female : 1950 Arrival Date: 08/03/2018 Time: 08:16 Bed 19 Private MD: Diagnosis: Abdominal tenderness;Other chronic pain Presentation: 08/03 08:19 Presenting complaint: EMS states: called out for low back pain and lower right em abdominal pain that started at 0500 today, pt was seen yesterday at pain management Dr and switched from morphine to Dilaudid around 929, they were informed it would take about 24 hours before Dilaudid would be in system, pt was instructed to put a code in pain pump to give a bolus of medication but pain pump read error. Transition of care: patient was not received from another setting of care. Onset of symptoms was August 03, 2018. Risk Assessment: Do you want to hurt yourself or someone else? Patient reports no desire to harm self or others. Initial Sepsis Screen: Does the patient meet any 2 criteria? No. Patient's initial sepsis screen is negative. Does the patient have a suspected source of infection? Yes: Acute abdominal pain. Care prior to arrival: None. 08:19 Method Of Arrival: [facility] em 08:19 Acuity: FARHAT 3 ss Triage Assessment: :31 General: Appears uncomfortable, Behavior is anxious. Pain: Complains of pain in right em lower quadrant and right low back and left low back. Historical: - Allergies: 08:31 Adhesives; em 08:31 Aspirin; em 08: Iodine; em 08:31 iron; em - Home Meds: 08: ibuprofen 200 mg Oral cap as needed [Active]; trazodone 100 mg Oral tab [Active]; em Cymbalta 60 mg oral cpDR 1 cap once daily [Active]; levothyroxine 25 mcg tab 1 tab once daily [Active]; docusate sodium 50 mg/5 mL Oral liqd 5 mL once daily [Active]; rasagiline oral oral [Active]; Aricept 10 mg Oral tab 1 tab once daily [Active]; Protonix 40 mg oral TbEC 1 tab [Active]; - PMHx: 09:17 scoliosis; Dementia; neuropathy; Hernia; Parkinsons; Hypothyroidism; Fibromyalgia; em - PSHx: 08:31 Mastectomy, Left; Mastectomy, Right; colon resection; em - Immunization history:: Adult Immunizations up to date. - Social history:: Smoking status: Patient/guardian denies using tobacco. - Family history:: not pertinent. - Ebola Screening: : Patient negative for fever greater than or equal to 101.5 degrees Fahrenheit, and additional compatible Ebola Virus Disease symptoms Patient denies exposure to infectious person Patient denies travel to an Ebola-affected area in the 21 days before illness onset No symptoms or risks identified at this time. Screenin:31 Abuse screen: Denies threats or abuse. Nutritional screening: No deficits noted. em Tuberculosis screening: No symptoms or risk factors identified. Fall Risk None identified. Assessment: 08:25 General: Appears uncomfortable, Behavior is cooperative, crying, Denies fever. Pain: em Complains of pain in right lower quadrant and right low back and left low back Pain currently is 10 out of 10 on a pain scale. Quality of pain is described as sharp, stabbing, Pain began 3 hours ago. Neuro: Level of Consciousness is awake, alert, obeys commands, Oriented to person, place, time, situation, Speech is normal, Facial symmetry appears normal. Cardiovascular: Denies chest pain, Capillary refill < 3 seconds Patient's skin is warm and dry. Respiratory: Airway is patent Respiratory effort is even, unlabored, Respiratory pattern is regular, symmetrical, hyperventilation Breath sounds are clear bilaterally. GI: Abdomen is round non-distended, wound Vac noted to abd, Tegaderm dry, clean and intact, small amount of serosanguineous fluid noted in tubing Bowel sounds present X 4 quads. Abd is soft X 4 quads Abdomen is tender to palpation in right lower quadrant Reports lower abdominal pain, Patient currently denies nausea, vomiting. : Denies burning with urination. Derm: Skin is intact, is healthy with good turgor, Skin is pink, warm \\T\\ dry. Musculoskeletal: Range of motion: intact in all extremities. 08:30 General: The previous assessment is accurate, call light remains within reach. ss 09:27 Reassessment: Patient appears in no apparent distress at this time. Patient and/or em family updated on plan of care and expected duration. Pain level reassessed. Patient is alert, oriented x 3, equal unlabored respirations, skin warm/dry/pink. rates pain 7/10, pt is drinking PO contrast Patient states feeling better. Patient states symptoms have improved. 10:03 Reassessment: finished drinking PO contrast, CT notified. em 10:27 Reassessment: Patient appears in no apparent distress at this time. Patient and/or em family updated on plan of care and expected duration. Pain level reassessed. Patient is alert, oriented x 3, equal unlabored respirations, skin warm/dry/pink. pt ambulated to restroom with steady gait, provided UA, rates pain 6/10, pending CT. 10:45 Reassessment: reports pain is 8/10, Dr. Hayes notified, new medications ordered. em 11:30 Reassessment: Patient appears in no apparent distress at this time. Patient and/or em family updated on plan of care and expected duration. Pain level reassessed. Patient is alert, oriented x 3, equal unlabored respirations, skin warm/dry/pink. Patient states feeling better. Patient states symptoms have improved. 12:20 Reassessment: pt upset with diagnosis and request to speak to provider, provider em notified, charge nurse notified. 13:32 Reassessment: provider at bedside discussing POC, pt addiment on being admitted for em obs., provider will speak with hospitalist. 13:45 Reassessment: pt activated pt pain pump, pt received unknown amount of pain em medication, pt reports it is Dilaudid, rates pain 7/10 currently, will continue to monitor. 14:50 Reassessment: Dr. Barnes at bedside. em 14:57 Reassessment: Patient appears in no apparent distress at this time. Patient and/or em family updated on plan of care and expected duration. Pain level reassessed. Patient is alert, oriented x 3, equal unlabored respirations, skin warm/dry/pink. 15:09 Reassessment: pt upset about discharge, request to be transferred to [facility] where pain em management has privileges, charge nurse notified, will speak with pt and family. 15:22 Reassessment: pt does not want to be discharged, house shorer and Dr. Hayes em notified. 15:36 Reassessment: Spoke with patient and 5 family members of discharge instructions and ss follow up care. pt and family still don't understand why patient is still hurting and why we would send her home to follow up with her doctor despite her negative tests. Pt is upset, and reports that even though her pain is better now, she is concerned of what kind of pain she will be in in between her pain pump Dilaudid doses. Dr. Hayes again at bedside discussing again test results and follow up instructions. Patient reports that she "just wants to go home and deal with it." Pt notified that she may call registration and voice her concerns. Pt states, "I don't need to talk to anyone! I've heard it all from every one of you. The same thing over and over again! I will never come here again! Y'all just don't know what's going on and that's the problem with you doctor's y'all just quit looking when you can't find anything happening. Where is this pain coming from?". 15:54 Reassessment: Patient appears in no apparent distress at this time. pt ambulated to wheelchair and wheeled to vehicle by Elisa nuclear medicine chief technologist, states, "not upset with us only the system," instructed on follow up instruction. Vital Signs: 08:31 BP 153 / 97; Pulse 89; Resp 22; Temp 98.2; Pulse Ox 100% on R/A; Weight 65.77 kg; em Height 5 ft. 2 in. (157.48 cm); Pain 10/10; 09:00 BP 143 / 77; Pulse 70; Resp 18; Pulse Ox 100% on R/A; Pain 10/10; em 10:00 BP 161 / 78; Pulse 65; Resp 20; Pulse Ox 100% on R/A; em 10:45 BP 148 / 82; Pulse 63; Resp 18; Pulse Ox 100% on R/A; Pain 8/10; em 11:30 BP 148 / 82; Pulse 63; Resp 18; Pulse Ox 99% on R/A; Pain 6/10; em 12:33 BP 158 / 73; Pulse 67; Resp 18; Pulse Ox 100% on R/A; em 14:05 BP 162 / 67; Pulse 69; Resp 18; Pulse Ox 99% on R/A; Pain 6/10; em 08:31 Body Mass Index 26.52 (65.77 kg, 157.48 cm) ED Course: 08:16 Patient arrived in ED. 08:17 Dereje Hayes MD is Attending Physician. marya 08:18 Jose Miller LVN is Primary Nurse. em 08:27 Triage completed. ss 08:31 Arm band placed on. em 08:31 Patient has correct armband on for positive identification. Bed in low position. Call em light in reach. Side rails up X2. Adult w/ patient. Pulse ox on. NIBP on. 08:45 Initial lab(s) drawn, by ED staff, sent to lab. Inserted saline lock: 18 gauge in right em EJ, using aseptic technique. ,using aseptic technique. placed by Dr. Hayes Blood collected. 09:10 XRAY Chest (1 view) In Process Unspecified. EDMS 09:25 EKG done, by ED staff, reviewed by Dereje Hayes MD. dh3 11:50 CT Abd/Pelvis - Without Cont In Process Unspecified. EDMS 11:50 CT completed. Patient tolerated procedure well. Patient moved back from CT. kw1 13:39 Yvonne Barnes MD is Hospitalizing Provider. marya 15:56 No provider procedures requiring assistance completed. IV discontinued, intact, em bleeding controlled, No redness/swelling at site. Pressure dressing applied. Administered Medications: 09:00 Drug: NS 0.9% 500 ml Route: IV; Rate: bolus; Site: right jugular; ss 09:35 Follow up: IV Status: Completed infusion; IV Intake: 500ml em 09:05 Drug: Zofran 4 mg Route: IVP; Site: right jugular; ss 09:27 Follow up: Response: No adverse reaction em 09:07 Drug: NS 0.9% 1000 ml Route: IV; Rate: 125 ml/hr; Site: right antecubital; ss 15:56 Follow up: IV Status: Order to discontinue infusion; IV Intake: 900ml em 09:07 Drug: Dilaudid 1 mg Route: IVP; Site: right jugular; ss 09:27 Follow up: Response: No adverse reaction; Pain is decreased em 10:49 Drug: Zofran 4 mg Route: IVP; Site: right jugular; ss 11:21 Follow up: Response: No adverse reaction em 10:51 Drug: Dilaudid 1 mg Route: IVP; Site: right jugular; ss 11:20 Follow up: Response: No adverse reaction; Pain is decreased em Intake: 09:35 IV: 500ml; Total: 500ml. em 15:56 IV: 900ml; Total: 1400ml. em Outcome: 12:24 Discharge ordered by . marya 13:43 Decision to Hospitalize by Provider. marya 14:56 Discharge ordered by . marya 15:56 Discharged to home via wheelchair. em 15:56 Condition: good 15:56 Discharge instructions given to patient, family, Instructed on discharge instructions, follow up and referral plans. no drinking with medication, no driving heavy equipment, medication usage, Demonstrated understanding of instructions, follow-up care, medications, Prescriptions given X 1. 15:57 Patient left the ED. em Signatures: Dispatcher [employer] Dereje Barboza MD MD cha Munoz, Edgar, SUBSYSTEMS ENGINEER SUBSYSTEMS ENGINEER em Samantha Adhikari RN RN ss Herrera, Deanna [facility]ant [facility] Shira Byrd1 Corrections: (The following items were deleted from the chart) 15:24 15:22 Reassessment: house shorer notified em em
[2018-08-03 16:01] VITALS: TEMP 98.2
[2018-08-03 16:10] VITALS: BP 162/67; O2SAT 99
--- NOTE | 2018-08-03 21:12 | EKG ---
Test Date: 2018-08-03 Test Time: 09:18:10 Casting Machine Service Operator: IRVING MEASUREMENT RESULTS: Intervals: Rate: 62 VT: 128 QRSD: 68 QT: 388 QTc: 393 [place]: P: 22 VT: 128 QRS: 61 T: 60 INTERPRETIVE STATEMENTS: Junctional rhythm Abnormal ECG Compared to ECG 12/07/2016 14:07:18 Sinus rhythm no longer present Electronically Signed On 08-03-18 21:12:12 NITROGLYCERIN SEPARATOR OPERATOR by Lorenzo Fernández
== END 2018-08-03 15:57 | disposition home or self-care (01) ==
LOC: ER 08:14
PROC: 05HP33Z Insertion of Infusion Device into Right External Jugular Vein, Percutaneous Approach (ICD-10-PCS; principal; 2018-08-03)
DX: G89.29 Other chronic pain (principal); G20 Parkinson's disease; F02.80 Dementia in other diseases classified elsewhere, unspecified severity, without behavioral disturbance, psychotic disturbance, mood disturbance, and anxiety; E03.9 Hypothyroidism, unspecified; Z88.6 Allergy status to analgesic agent; Z88.8 Allergy status to other drugs, medicaments and biological substances; Z91.048 Other nonmedicinal substance allergy status
CPT/HCPCS: 96361; 93005; 87088; 85025; 87086; 80048; 36415; 83735; 85610; 80076; 83605; 81003; 84484; 83690; 83880; 74176; 71045; 96375; 96374; 99285; 36569; J1170 ×2; J7030; J2405 ×2